=== PATIENT | female | born 1985 | race Caucasian/White ===

== ENCOUNTER 2020-03-09 05:01 | Emergency (ER) | payer OTHER, SELFPAY ==
[2020-03-09 05:02] VITALS: BP 136/79; PULSE 80; RESP 15; TEMP 36.9; O2SAT 97; BMI 37.6
[2020-03-09 05:16] VITALS: BP 120/83; BP 122/67; BP 123/60; PULSE 69; PULSE 74; PULSE 77
--- NOTE | 2020-03-09 05:17 | ED.VISSUMM ---
- ER Visit Summary Date of Service: 03/09/20 Chief Complaint: Dizziness History of Present Illness: The patient is a 34 F who presents with dizziness that began today. Patient states she feels lightheaded. Patient also admits to some numbness and tingling. Patient states her lightheadedness is worse when she stands up. Patient also states she feels shaky all over. Patient states she was started on fluoxetine 2 weeks ago. Patient admits to drinking alcohol yesterday. Patient states she woke up because she was having a nightmare and felt dizzy. Patient states the dizziness has been persistent. Patient denies any chest pain or shortness of breath. Patient admits to one episode of nausea and vomiting. Physical Examination: Vital signs are stable. Patient is afebrile. Patient is in no acute distress. Oral mucosa is pink and moist. Neck is supple. Trachea is midline. There is no JVD noted. Heart was regular rate and rhythm. Lungs are clear and equal bilaterally. Abdomen is soft. Bowel sounds are normal. There is no tenderness. There is no rebound or guarding noted. Skin is warm dry. Cranial nerves II through XII are intact. There are no focal motor or sensory deficits noted. Extremities are intact. There is no calf tenderness or edema. Patient does have an anxious mood and affect. Test Results: CBC shows a mild leukocytosis of 16.5. Comprehensive metabolic profile showed mild hypokalemia of 3.3. Urinalysis was normal. Serum hCG was negative. Emergency Department Course and Treatment: Patient was given IV fluids and Benadryl. Orthostatic vital signs were obtained and were negative. Patient was feeling better on reevaluation. Patient was instructed to contact her primary care physician's office today for further instructions on her fluoxetine. Patient was instructed to avoid alcohol until she follows up with her primary care physician. Patient was instructed to return if worse in any way. Patient understood and was agreeable with the plan. All questions were answered. Disposition: Discharge home Impression: Adverse medication reaction This note was generated with [employer] dictation software. It may contain incorrect words, spelling, and punctuation that were not noted in review of the chart prior to signing ED Disposition - Plan for ED Patient: Disposition: Home or Assisted Living Diagnosis: Adverse drug reaction Instructions: ED Drug React Adverse Other, ED Dizziness [facility] Referrals: Kit Wharton MD [Primary Care Provider] - 3-5 Days
[2020-03-09] MEDS: DiphenhydrAMINE 50 MG/ML Syringe 25 MG IV (05:39)
[2020-03-09] MEDS: 0.9% Normal Saline 1,000 ML 1000 ML IV (05:39)
[2020-03-09 05:46] LABS: Absolute Neutrophil Count 13.7 X10^3/uL (2.0-7.7); Bacteria 0 SEEN /hpf (None Seen); Basophil# 0.03 X10^3/uL; Basophil% 0.2 % (0-1); Eosinophils% 0.6 % (0-5); Hematocrit 41.2 % (37-47); Hemoglobin 13.6 g/dL (12.0-15.0); Lymphocyte % 10.9 % (19-41); Mean Corpuscular Hgb 29.6 pg (27.0-32.0); Mean Corpuscular Volume 89.6 fL (81-99); Mean Platelet Vol. 9.9 fl (6.2-12.0); Monocyte# 0.71 X10^3/uL; Monocyte% 4.3 % (0-10); Mucous, Urine 0 SEEN /hpf (<or=2+); NRBC Flagged by Analyzer 0 % (0-5); Neutrophil # 13.74 X10^3/uL (2.7-7.7); Neutrophil % 83.5 % (47-70); Platelet Count 271 K/mm3 (150-450); RBC Distribution Width CV 12.2 % (11.6-14.6); RBC Distribution Width SD 39.8 fl (35.1-43.9); Red Blood Cells-Urine 0 SEEN /hpf (0-5); White Blood Cells 0 SEEN /hpf (0-5); White Blood Count 16.5 K/mm3 (4.4-11.0)
[2020-03-09 05:57] LABS: Color, Urine Yellow (Yellow); Glucose, Dipstick Normal (Normal); Ketone-Dipstick 5 mg/dl (Negative); Leukocyte Esterase-Dipstick Negative /ul (Negative); Nitrite-Dipstick Negative (Negative); Occult Blood-Urine Negative /ul (Negative); Protein-Dipstick Negative (Negative); Specific Gravity, Urine 1.005 (1.002-1.030); Urine Bilirubin Dipstick Negative (Negative); Urine Clarity Clear (Clear); Urine Urobilinogen Normal (Normal)
[2020-03-09 05:59] LABS: Internal QC Validated? YES +Cl - CLEAR BKGD; Pregnancy, Serum, hCG Quali. NEGATIVE Negative
[2020-03-09 06:02] LABS: Squamous Epithelial Cells - UA 0-5 SEEN /hpf (5-10)
[2020-03-09 06:03] LABS: AST(SGOT) 14 U/L (15-37); Alanine Aminotransfer ALT/SGPT 20 U/L (13-56); Alkaline Phosphatase 81 U/L (45-117); Anion Gap 11 (5-15); BUN 8 mg/dL (7-18); BUN/Creat Ratio 9.4 RATIO (10-20); Calcium,Total 8.6 mg/dL (8.5-10.1); Chloride 107 mmol/L (98-107); Creatinine, Serum 0.85 mg/dL (0.55-1.02); EST Glomerular Filtration Rate 81 mL/min (>60); Est Glom Filt Rate - Afr Amer 98 mL/min (>60); Globulin 3.9 g/dL (2.2-4.2); Glucose 93 mg/dL (74-106); Potassium 3.3 mmol/L (3.5-5.1); Protein, Total 7.9 g/dL (6.4-8.2); Sodium Level 141 mmol/L (136-145)
[2020-03-09 06:33] VITALS: BP 106/69; PULSE 71; RESP 16; O2SAT 98
== END 2020-03-09 06:39 | disposition home or self-care (01) ==
PROVIDERS: Emergency Provider Emergency Medicine; PCP Family Medicine
DX: R42 Dizziness and giddiness (principal); T50.905A Adverse effect of unspecified drugs, medicaments and biological substances, initial encounter
CPT/HCPCS: 80053; 81001; 84703; 85025; 96361; 96374; 99284; J7030; A4216

== ENCOUNTER 2020-12-05 16:55 | Outpatient (CLI) | payer OTHER, SELFPAY ==
[2020-12-05 17:17] VITALS: BP 125/72; PULSE 110; TEMP 36.9; O2SAT 97
[2020-12-05 17:22] VITALS: BMI 41.9
--- NOTE | 2020-12-06 09:06 | OB.TRI.NOTE ---
HPI - General HPI Narrative 35-year-old 1 para 0 presents at 30 weeks gestation complaining of decreased movement, some cramping, and some pink-tinged vaginal discharge. No gross vaginal bleeding. Date of visit was 12/05/2020. Estimated date of delivery of 02/13/2021. [facility] Home Medications 12/05/20 [History Last Taken Unknown] Vitamin B-6 12/05/20 [History Last Taken Unknown] aspirin PO 12/05/20 [History Last Taken Unknown] ferrous sulfate mg 12/05/20 [History Last Taken Unknown] omeprazole 20 mg PO DAILY 12/05/20 [History Last Taken Unknown] Allergy/AdvReac Type Severity Reaction Status Date / Time shellfish derived Allergy NEEDS Verified 12/05/20 17:23 FOLLOW-UP Social History Smoking Status: Never smoker Physical Exam Narrative Per nursing staff NST FHR Rate Baby A Baseline: 130 Variability:: Moderate Accelerations:: 10 x 10 Decelerations:: None NST Reactive:: Appropriate for gestational age FHR Category:: Category I Uterine Activity:: no ctxs Assessment & Plan Assessment/Plan (1) Threatened labor, antepartum: PLAN: 35-year-old 1 para 0 at 30 weeks gestation with decreased movement, advanced maternal age and some vaginal discharge and threatened labor. Reassured no evidence of labor. Kick counts reviewed. NST is reactive. Discharge home with routine follow-up in the office or return as needed.
== END 2020-12-05 17:55 | disposition home or self-care (01) ==
LOC: WPOUT 17:05 → WP 17:05
PROVIDERS: PCP Family Medicine; Visit Provider Obstetrics & Gynecology
DX: O36.8130 Decreased fetal movements, third trimester, not applicable or unspecified (principal); O60.03 Preterm labor without delivery, third trimester; Z3A.30 30 weeks gestation of pregnancy
CPT/HCPCS: 59050; 99218; G0378

== ENCOUNTER 2021-02-10 19:10 | Inpatient (IN) | payer OTHER, SELFPAY ==
[2021-02-10] VITALS (7 sets, daily range): BP systolic 119–130; BP diastolic 59–76; PULSE 70–86; TEMP 36.2–37.1; O2SAT 96–98; BMI 42.2
[2021-02-10] MEDS: Lactated Ringers 1,000 ML 50 ML IV (19:45)
[2021-02-10 19:58] LABS: Absolute Lymphocyte Count 2.66 X10^3/uL (0.83-4.51); Absolute Neutrophil Count 7.9 X10^3/uL (2.0-7.7); Basophil# 0.02 X10^3/uL; Basophil% 0.2 % (0-1); Eosinophil# 0.11 X10^3/uL; Eosinophils% 0.9 % (0-5); Hemoglobin 11.3 g/dL (12.0-15.0); Lymphocyte # 2.66 X10^3/ul (0.83-4.51); Lymphocyte % 22.8 % (19-41); Mean Corp Hgb Conc 33.2 g/dL (32-36); Mean Corpuscular Hgb 29.7 pg (27.0-32.0); Mean Corpuscular Volume 89.2 fL (81-99); Mean Platelet Vol. 10.8 fl (6.2-12.0); Monocyte# 0.91 X10^3/uL; Monocyte% 7.8 % (0-10); NRBC Flagged by Analyzer 0 % (0-5); Neutrophil # 7.92 X10^3/uL (2.7-7.7); Neutrophil % 67.8 % (47-70); Platelet Count 208 K/mm3 (150-450); RBC Distribution Width CV 12.8 % (11.6-14.6); RBC Distribution Width SD 41.8 fl (35.1-43.9); Red Blood Count 3.81 M/mm3 (4.2-5.4); White Blood Count 11.7 K/mm3 (4.4-11.0)
[2021-02-10] MEDS: 0.9% Normal Saline Single 100 ML IV.SOLN. INTRA-UTER (20:45)
--- NOTE | 2021-02-10 20:52 | PCM.HP.OB ---
HPI - General General Date of Admission: 02/10/21 Date of Service: 02/10/21 Chief Complaint: induction of labor HPI Narrative JOSHUA PINTO, is a 35 YOF @ 39 4/7 weeks gestation presents for induction of labor. She denies any vaginal bleeding or leaking of fluid. was complicated to date by chlamydia earlier in the , it was treated and resolved. She is advanced maternal age, had third trimester antepartum anemia. She is had good movement. No vaginal bleeding or leaking of fluid. History of depression in the past. Maternal Data Information Final TERRENCE: 02/13/21 Gestational age: 39 4/7 PFSH [facility] Medical History (Updated 02/10/21 @ 20:[address] Jayde Peoples MD) Bulimia Depression Home Medications 12/05/20 [History Last Taken Unknown] Vitamin B-6 12/05/20 [History Last Taken Unknown] aspirin PO 12/05/20 [History Last Taken Unknown] ferrous sulfate mg 12/05/20 [History Last Taken Unknown] omeprazole 20 mg PO DAILY 12/05/20 [History Last Taken Unknown] Allergy/AdvReac Type Severity Reaction Status Date / Time shellfish derived Allergy NEEDS Verified 12/05/20 17:23 FOLLOW-UP Surgical History (Updated 02/10/21 @ 20:28 by Lety Sánchez) [place] teeth extracted Social History Smoking Status: Never smoker History Elective abortions Hx Para 0 Spontaneous abortions Hx # Term Pregnancies Ectopic pregnancies Hx # Pregnancies Multiple births # of living children NST FHR Rate Baby A Baseline: normal Variability:: Moderate Accelerations:: 15 x 15 Decelerations:: None NST Reactive:: Yes FHR Category:: Category I ROS Constitutional Constitutional: Denies fatigue, fever(s) or malaise Eyes Eyes: Denies change in vision ENT HEENT: Denies dizziness or headache(s) Cardiovascular Cardiovascular: Denies chest pain, dyspnea or lightheadedness Respiratory/Chest Respiratory/Chest: Denies cough or dyspnea Gastrointestinal Gastrointestinal: Denies change in bowel habits Genitourinary Genitourinary: Denies burning urination or genital lesions Integumentary Integumentary: Denies rash Neurologic Neurologic: Denies confusion, dizziness, headache(s), numbness or weakness Vital Signs Vital Signs Vital Signs: 02/10/21 19:48 02/10/21 19:49 Temperature 98.8 F Temperature Source Temporal Pulse Rate 83 76 Blood Pressure 126/69 H BP Systolic 126 BP Diastolic 69 Pulse Ox 97 Weight Weight: 122.289 kg Body Mass Index (BMI) 42.2 Physical Exam Const alert and no apparent distress General Appearance: cooperative HEENT normocephalic Resp normal respiratory effort Cardio regular rate GI soft to palpation GI Narrative: gravid, nontender, appropriate for gestational age Extremity no calf tenderness General Extremity: edema Skin no wounds Rashes: No rashes noted Psych activity/motor behavior normal Labs Labs Labs: Blood Type A NEGATIVE Antibody Screen NEGATIVE Hct 34.0 % (37-47) L Hgb 11.3 g/dL (12.0-15.0) L Assessment & Plan (1) 39 weeks gestation of : (2) Advanced maternal age (AMA) in : PLAN: Estimated weight less than 4500 g, pelvis clinically adequate to expect vaginal delivery. Risk benefits and alternatives to induction labor him discussed with patient, questions were answered to her satisfaction she desires to proceed. We will proceed with Pitocin, Ellis, and artificial rupture of membranes if needed for induction. May have IV medications, epidural, or nitrous oxide as needed for pain control. (3) Maternal obesity syndrome in third trimester: (4) Antepartum anemia complicating in third trimester: (5) BMI 40.0-44.9, adult: (6) Encounter for induction of labor:
[2021-02-10] MEDS: Oxytocin 30 units/NS 500 ml 30 UNITS/500 ML IV.SOLN IV (21:30)
[2021-02-11] VITALS (118 sets, daily range): BP systolic 104–143; BP diastolic 53–92; PULSE 44–229; RESP 16; TEMP 36.2–38.2; O2SAT 81–100
[2021-02-11] MEDS: Lactated Ringers 500 ML 999 ML IV (07:24)
[2021-02-11] MEDS: fentaNYL-bupivacaine (epidural) 100 ML BAG EPIDURAL ×2 (08:05→12:47)
--- NOTE | 2021-02-11 08:44 | PCM.PN.BLA ---
Progress Note AROM performed- Clear fluid. IUPC placed. Continue pitocin. Epidural if requested for pain.
[2021-02-11] MEDS: Mag Hydrox/Al Hydrox/Simeth 30 ML UDC PO ×2 (09:19→14:16)
[2021-02-11] MEDS: Lactated Ringers 1,000 ML 200 ML IV (09:20)
[2021-02-11] MEDS: Oxytocin 30 units/NS 500 ml 30 UNITS/500 ML IV.SOLN 334 UNITS IV (14:25)
--- NOTE | 2021-02-11 14:38 | OP.PCM_ITS ---
Assessment & Plan (1) BMI 40.0-44.9, adult: (2) Antepartum anemia complicating in third trimester: (3) Advanced maternal age (AMA) in : (4) Maternal obesity syndrome in third trimester: (5) 39 weeks gestation of : (6) Normal vaginal delivery: (7) Delivery outcome of liveborn infant: Maternal Data Information Final TERRENCE: 02/13/21 Final TERRENCE Source: [place] <20 weeks Gestational age: 39 5/7 Vaginal Delivery Maternal Presentation Maternal Presentation: Medically Indicated Induction Type of Induction: Pitocin, Ellis Bulb and Amniotomy Medical Reason for Induction: - (BMI greater than 40, advanced maternal age) Operative Information Date of Procedure: 02/11/21 Pre-Operative Diagnosis: labor Post-Operative Diagnosis: same Surgery / Procedure Performed: Spontaneous Vaginal Delivery Type of Anesthesia: Epidural Special Medications: none Drain: - (none) Estimated Blood Loss: 300 Time of Delivery: 14:35 Findings Description of Procedure: A vigorous male infant was delivered [WOLF] over a f irst-degree vaginal laceration. A tight nuchal cord x1 was reduced the remainder the was delivered with maternal pushing and gentle traction only in approximately 45 seconds. The shoulders would not initially deliver, they were transverse. I was able to place a hand and vaginally and rotate the shoulders so that they were more in an anterior posterior direction and then the anterior shoulder was the right shoulder delivered easily with 1 push. The Pitocin infusion was initiated for active management of the third stage. The cord was clamped and cut as the was not immediately vigorous in the first 20 seconds and the was then handed off to the waiting nursing staff and taken to the stablette. The infant was attended to by the waiting nursing staff. The placenta was delivered spontaneously and intact. The cervix and vagina were intact. The first-degree vaginal laceration was bleeding and was repaired with 3-0 Vicryl Rapide suture. It was then hemostatic. Sponge and needle counts were correct. A vaginal sweep was completed by me. Presentation: WOLF Amniotic Membrane Rupture Type: Artificial Amniotic Fluid Description: Clear Placental Delivery Description: Spontaneous Placenta Disposition: [facility] Cord Vessel Description: 3 Vessels Cord Entanglement: Around neck x 1, tight Nuchal Cord Compression: Without compression Cord Gases: ABG and VBG Infant A Gender: Male (Max) (1 minute): 8 (5 minute): 9 Delayed Cord Clamping: No Admit VTE Documentation VTE Present on Admission: No VTE Mechan Device Prophylaxis: None VTE Pharm Prophylaxis Ordered: No Reason Prophylaxis Not Ordered: Procedure Not Indicated
[2021-02-11] MEDS: 0.9% Saline Lock 10 ML Syringe IV (17:15)
--- NOTE | 2021-02-11 17:16 | NURSING ---
Epidural catheter removed. Blue tip intact.
[2021-02-11] MEDS: Ibuprofen 600 MG Tablet PO (23:05)
[2021-02-12 04:55] VITALS: BP 129/60; PULSE 81; RESP 18; TEMP 36.2
[2021-02-12 07:42] VITALS: BP 118/86; RESP 16; TEMP 36.4
--- NOTE | 2021-02-12 08:54 | PCM.PN.OB ---
Subjective Subjective Doing well per patient and nursing staff. Ambulating and taking PO without difficulty. Voiding and passing flatus. . No complaints, requesting D/C home today. Objective Data Objective Data Vital Signs: Vital Signs Temp Pulse Resp BP Pulse Ox 97.5 F L 81 16 118/86 H 98 02/12/21 07:42 02/12/21 04:55 02/12/21 07:42 02/12/21 07:42 02/11/21 16:22 Oxygen Delivery Method Room Air Weight: 269 lb 9.6 oz Body Mass Index (BMI) 42.2 Intake & Output: Intake and Output for Last 24 Hours 02/10/21 02/11/21 02/12/21 23:59 23:59 23:59 Intake Total 7.67 / 7.67 3087.50 / 3087.50 Output Total 1200 / 1200 Balance 7.67 / 7.67 1887.50 / 1887.50 Lab / Micro Data Result Diagrams: 02/10/21 19:45 Labs: Laboratory Results - last 24 hr 02/11/21 17:35: Screen Cancelled, Baby's Blood Type Cancelled, Baby's FUAD Cancelled ROS Constitutional Constitutional: Reports systems reviewed and no addt'l complaints, except as documented; Denies headache(s) Eyes Eyes: Denies acute decrease in peripheral vision, blurry vision or change in vision ENT HEENT: Reports systems reviewed and no addt'l complaints, except as documented Cardiovascular Cardiovascular: Denies chest pain or dizziness Respiratory/Chest Respiratory/Chest: Denies cough, dyspnea, dyspnea on exertion, shortness of breath at rest or shortness of breath with exertion Gastrointestinal Gastrointestinal: Denies abdominal pain, diarrhea, nausea or vomiting Genitourinary Genitourinary: Denies abdominal discomfort Musculoskeletal Musculoskeletal: Denies limited range of motion Integumentary Integumentary: Reports systems reviewed and no addt'l complaints, except as documented Neurologic Neurologic: Reports systems reviewed and no addt'l complaints, except as documented Psychiatric Psychiatric: Reports systems reviewed and no addt'l complaints, except as documented Endocrine Endocrinology: Reports systems reviewed and no addt'l complaints, except as documented Hematologic/Lymphatic Hematologic/Lymphatic: Reports systems reviewed and no addt'l complaints, except as documented Allergic/Immunologic Allergic/Immunologic: Reports systems reviewed and no addt'l complaints, except as documented Physical Exam Const alert and oriented x3 General Appearance: cooperative Orientation / Consciousness: awake, oriented to person, oriented to place and oriented to time Exam Limitations: no limitations HEENT normocephalic Head and Scalp: normal to inspection, normocephalic and atraumatic Face and Sinus: normal facial exam Eyes General Eye: normal appearance of both eyes Neck full ROM Chest Chest: symmetrical chest wall rise Resp normal respiratory effort and normal air movement Auscultation: clear to auscultation bilaterally Cardio regular rate, regular rhythm, S1 normal heart sound, S2 normal heart sound, no murmurs, no rub, no gallops and no clicks GI normal to inspection, nondistended, normoactive bowel sounds and non-tender GI Narrative: fundus 3 below U appearance of the vagina normal Bladder / Kidney Exam: no CVA tenderness Back/Spine normal ROM Extremity normal to inspection and full ROM Skin no rashes or lesions noted Neuro oriented x3, CN's II-XII intact bilaterally and moves all extremities Sensorium / Orientation: awake, alert and oriented to person Motor Exam: clonus absent Deep Tendon Reflexes: Rt Patellar (L4): 2+ and Lt Patellar (L4): 2+ Assessment & Plan (1) Delivery outcome of liveborn infant: (2) Normal vaginal delivery: (3) BMI 40.0-44.9, adult: PLAN: 1) D/C and instructions reviewed 2) Ibuprofen for pain relief 3) Follow up in 2 weeks and 6 weeks 4) D/C home
--- NOTE | 2021-02-12 11:24 | CASEMGMT ---
Social Work Assessment Labor and Delivery Unit Date/Time of Referral: 02/11/21, 15:25 Referred by: Dr. Jayde Peoples Date/Time of Intervention: 02/12/21, 11:00 Reason for referral: History of anxiety, depression, bulimia, +chl. in June, treated History obtained from: MARGOT Household Composition: MARGOT, ABHINAV and maxine Waller, and now baby Armando. MARGOT's mother will be staying with them for a week once home. Parent/guardian status: MARGOT and Nickolas Waller are the parents Medical History: Mom: advanced maternal age, antepartum anemia, history of depression, anxiety, bulimia Baby: Born 02/11/21, 14:23, 4205 grams. Apgars 8 and 9 at one and five minutes. Baby large for gestational age, shoulder dystocia Educational Status: MARGOT has a master's degree. ABHINAV has an associate's degree. Financial Status: No financial concerns. ABHINAV owns a [employer] and [employer] business. 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 She plans to return to work after 12 weeks, a mom of friend of the family's will watch the baby. Supplies: Family has all needed supplies including crib, bassinet, pack n play, car seat, clothing, diapers, bouncer, swing. MARGOT plans to breast feed, she states so far it is going better than expected. Childcare/Caregivers: FOB, MOB, friend's mother, MOB's mother, FOB's parents and family also available Behavioral Health Issues: Substance abuse--no history for FOB or MOB, no drug screens completed on MOB or baby. Mental Health--no history for FOB. MOB confirms history of depression, anxiety, bulimia. MARGOT reports history of wanting to harm herself when much younger, has not felt that way since she was 20. MARGOT reports history of depression but not recently, last time was when she was in her late 20's. MARGOT does report more recent history of anxiety bulimia. MARGOT states has been seeing Minoo Sullivan, counselor here in [place], for the last year. She states she sees her in person once per month, was seeing her more frequently in the past. She states Minoo really helped her with the bulimia and she is having no issues with bulimia at present. We discussed increasing counseling sessions should she start having symptoms of bulimia, anxiety or depression. We also spoke about medication. MOB tried Prozac once however it had adverse effects. We discussed speaking w/her PCP should she have an increase in any symptoms related to mental health, to see if medication, even short term, may be helpful. MOB seems open to this if needed. At present, MOB reports to managing the mental health diagnoses well. Safety--MOB reports she has no safety concerns. Family/Social Stressors: MOB and FOB did move recently, so that was a stress. However they are settled in now. The only stress MOB reports is having a . Support Systems: FOB's parents and family, MOB's mother, close friends Depression and Anxiety/Shaken Baby/Safe Sleeping: SW gave information to MOB on all of these topics and reviewed the information with her. SW also gave her the number to [facility] and explained they have a 24 hour hotline if needed. Information also given on [facility], MOB will speak w/[employer] about referral if she feels it is needed. Assessment: SW spoke w/MOB, she was open about mental health history, answered all questions. MOB holding baby while speaking w/SW, very appropriate in handling of baby. MOB very self aware, and seems to know the importance of asking for help w/mental health struggles when needed. Plan: Baby home w/MOB and FOB at discharge. No social service concerns at this time. SW does remain available should any needs arise. SIGIFREDO Jin
[2021-02-12 12:55] VITALS: BP 109/71; RESP 16; TEMP 36.3
[2021-02-12] MEDS: Ibuprofen 600 MG Tablet PO (15:38)
[2021-02-12] MEDS: Senna/Docusate Sodium 1 Tablet PO (15:40)
--- NOTE | 2021-02-12 16:21 | PCM.DC.SUM ---
Providers Date of Admission: 02/10/21 Primary Care Physician: Dr. Kit Wharton MD Reason For Visit: VAG DELIVERY Diagnosis Discharge Diagnosis (1) BMI 40.0-44.9, adult: Status: Acute Code(s): Z68.41 - Body mass index [BMI]40.0-44.9, adult (2) Normal vaginal delivery: Status: Acute Code(s): O80 - Encounter for full-term uncomplicated delivery (3) Delivery outcome of liveborn infant: Status: Acute Code(s): Z37.9 - Outcome of delivery, unspecified Medications at Discharge Home Medications PO/SL DAILY 12/05/20 ibuprofen 600 mg PO Q6H PRN PRN #0 tab 02/12/21 Hospital Course Operations None Procedures None Weight / BMI Weight Weight: 269 lb 9.6 oz Body Mass Index (BMI) 42.2 ABG / Lab / Microbiology Data Result Diagrams: 02/10/21 19:45 Laboratory: Laboratory Results - last 24 hr 02/11/21 17:35: Screen Cancelled, Baby's Blood Type Cancelled, Baby's FUAD Cancelled D/C Instructions Discharge Diet: No restrictions Discharge Activity: Return to Normal Activity, May Drive and May Shower May resume sexual activity in: 6 weeks Weight Bearing Status: Full weight bearing Lifting Restricted to (Lbs): 50 Call your doctor if your incision/area has: Sudden Increased Bleeding, Increased Pain/ Swelling, Increased Redness and Foul Smelling Discharge Call your doctor if you observe: Fever of 101 or Higher, Inability to urinate, Inability to have a bowel movement, Using more than 1 pad per hour, Shortness of breath, Dizziness, Fainting spells, Chest pain, Increased palpitations (irregular heartbeat), Calf discomfort and Uncontrolled pain Meaningful Use Info Meaningful Use Diagnoses (Choose all that apply): None applicable Discharge Plan Admission Admit Date/Time: 02/10/21 19:10 Primary Reason for Your Visit: Attending Provider: Jayde Peoples Primary Care Provider: Kit Wharton Instructions Patient Instructions: After a Vaginal , Discharge Orders/Prescriptions Prescriptions: New ibuprofen 600 mg Tablet 600 mg PO Q6H PRN PRN (Reason: Pain Score 1-3) Qty: 0 RF: 0 Continued PO/SL DAILY RF: 0 Discontinued omeprazole 20 mg Capsule,Delayed Release(/[place]) 20 mg PO DAILY RF: 0 aspirin 81 mg Tablet 81 mg PO DAILY RF: 0 ferrous sulfate 134 mg (27 mg iron) Tablet 134 mg PO QODAY RF: 0 Referrals / Follow Up: Kit Wharton MD [Primary Care Provider] - Disposition Disposition (needs filled in before D/C Order can be placed): Home, Self Care
== END 2021-02-12 18:30 | disposition home or self-care (01) | DRG 807 ==
PROVIDERS: Admitting Provider Obstetrics & Gynecology; PCP Family Medicine; Visit Provider Obstetrics & Gynecology
DX: O99.02 Anemia complicating childbirth (principal); Z37.0 Single live birth; D64.9 Anemia, unspecified; O99.214 Obesity complicating childbirth; E66.9 Obesity, unspecified; Z3A.39 39 weeks gestation of pregnancy; O70.0 First degree perineal laceration during delivery; O69.1XX0 Labor and delivery complicated by cord around neck, with compression, not applicable or unspecified
CPT/HCPCS: 59025; 59050; 85025; 86850; 86900; 86901; 99218; J7120; A4216; G0378; J3490